=== PATIENT | male | born 1965 | race Caucasian/White ===

== ENCOUNTER 2017-08-31 00:51 | Day surgery (SDC) | payer OTHER ==
[2017-08-31] VITALS (7 sets, daily range): BP systolic 91–136; BP diastolic 62–95
[~2017-08-31] VITALS: Ht 170.2 cm; Wt 93.9 kg
[~2017-08-31 00:51] MED LIST: ATOR10TA24 PO; AZIT-18 PO; METF-410 PO; MONT10TA PO; PANT40TA65 PO; PRED20TA6 PO
[2017-08-31] MEDS ORDERED: PROPOFOL EMUL(*) 10MG/ML 20 ML 20 ML ONE ×2 (07:31→13:18)
[2017-08-31] MEDS ORDERED: NORMOSOL R SOLN(*) 1000 ML BAG 1,000 ML IV PRN (12:30)
[2017-08-31] MEDS ORDERED: MIDAZOLAM 2 MG/2 ML VIAL IVP ONE (12:30)
[2017-08-31] MEDS ORDERED: LIDOCAINE/SOD BICARB 8.4% SYR ID ONE (12:30)
[2017-08-31] MEDS ORDERED: ALBUTEROL/IPRATROPIUM 3 ML NEB ONE (12:37)
== END 2017-08-31 14:25 | disposition home or self-care (01) ==
LOC: OR 00:51
PROVIDERS: ATTEND Family Medicine
DX: Z12.11 Encounter for screening for malignant neoplasm of colon (principal)
CPT/HCPCS: 00812; 36416; 45378; 82948; 94640; J2704; J7620

== ENCOUNTER → 2018-10-24 | Outpatient (REF) | payer OTHER ==
[~2018-10-24] MED LIST changes: -METF-410 PO; +METF-450 PO; +TRIA15CR40 TP
== END ==
LOC: ZZSENDIN 13:38
PROVIDERS: ATTEND Family Medicine
DX: R05 Cough (principal)